=== PATIENT | male | born 1955 | race Caucasian/White ===

== ENCOUNTER 2016-11-29 20:16 | Emergency (ER) | payer BC, OTHER ==
[~2016-11-29] VITALS: Ht 182.9 cm; Wt 99.9 kg
[~2016-11-29 20:16] MED LIST: ATV/1 PO; BND25X PO; DULO1CAP39 PO; GABA1CAP4 PO; HYDROCO/APAP; LEVO150T9 PO; NRV/10 PO; OXYC7.5T65 PO; PRT40 PO; RBX750 PO
[2016-11-29 20:20] VITALS: TEMP 36.8; Ht 182.9 cm; Wt 99.9 kg
[2016-11-29] MEDS ORDERED: RIFA550T2 PO (21:40)
[2016-11-29] MEDS ORDERED: CYM/30 PO (21:40)
[2016-11-29] MEDS ORDERED: MAGN400T6 PO (21:40)
[2016-11-29] MEDS ORDERED: FERR1TAB23 PO (21:40)
[2016-11-29] MEDS ORDERED: MULT-513 PO (21:40)
[2016-11-29] MEDS ORDERED: CYCL10TA6 PO (21:40)
[2016-11-29] MEDS ORDERED: NADO20TA15 PO (21:40)
[2016-11-29] MEDS ORDERED: APR25 PO (21:40)
[2016-11-29] MEDS ORDERED: LEVO150T PO (21:40)
[2016-11-29] MEDS ORDERED: PANT40TA PO (21:40)
[2016-11-29] MEDS ORDERED: TAMS0.4C38 PO (21:40)
[2016-11-29] MEDS ORDERED: LACTULOSE PO (21:40)
[2016-11-29] MEDS ORDERED: CYAN10005 PO (21:40)
[2016-11-29] MEDS ORDERED: THIA100T11 PO (21:40)
[2016-11-29] MEDS ORDERED: GABA-113 PO (21:40)
[2016-11-29] MEDS ORDERED: ATV/1 PO (21:40)
[2016-11-29] MEDS ORDERED: FOLI1TAB7 PO (21:40)
[2016-11-29] MEDS ORDERED: MoRPHine SULFATE 4 MG/ML 1 ML CARP\\VIAL IV STA (21:49)
[2016-11-29] MEDS ORDERED: SODIUM CHLORIDE 0.9% 1000ML 1,000 ML IV STA (21:49)
[2016-11-29] MEDS ORDERED: OPTIRAY 320 IV PRN (22:00)
[2016-11-29 22:33] LABS: BASO % 0.5 %; BASO ABS # 0.03 K/uL (0-0.2); COMPLETE YES; EOS % 2.4 %; HEMATOCRIT 41.4 % (42-52); IG% 0.3 %; LYMPH % 42.6 %; LYMPH ABS # 2.71 K/uL (1.2-3.4); MEAN CORPUSCULAR HGB CONC 34.1 g/dl (32-36); MEAN PLATELET VOLUME 10.1 fL (7.4-10.4); MONO % 15.3 %; NEUT % 38.9 %; PLATELET COUNT 177 K/uL (130-400); RED BLOOD COUNT 4.27 M/uL (4.7-6.1); WHITE BLOOD COUNT 6.36 K/uL (4.8-10.8)
[2016-11-29 22:46] LABS: CREATININE 0.88 mg/dl (0.60-1.40); POTASSIUM 3.8 mmol/L (3.5-5.1)
[2016-11-29 23:17] LABS: URINE APPEARANCE CLEAR (CLEAR); URINE BILIRUBIN NEG (NEG); URINE COLOR YELLOW; URINE NITRITE NEG (NEG); URINE PH 8.5 (4.5-7.5); URINE SPECIFIC GRAVITY 1.004 (1.000-1.030); UROBILINOGEN NEG (NEG); ZZUR CULT IF INDIC CLEAN CATCH NO
[2016-11-29 23:31] LABS: MANUAL MICROSCOPIC REQUIRED? NO; REVIEW REQ? NO
[2016-11-30] MEDS ORDERED: OXYCODONE IR HOME PACK PO ONE (02:15)
[2016-11-30] MEDS ORDERED: OXYC1TAB3 PO (02:22)
--- NOTE | 2016-11-30 02:26 | EMERGENCY ROOM VISIT NOTE ---
History First contact with patient: 21:41 Chief Complaint: GROIN PAIN Stated Complaint: PAIN IN RT GROIN AREA INTO BACK History of Present Illness The patient is a 61 year old male who presents to the Emergency Room with complaints of right groin, abdominal and back pain. The patient states that he has been having pain in his right groin for the past few weeks. He states the pain radiates into his testicles and into his back. He reports dysuria but denies any other urinary symptoms. He states he has been mildly constipated. He reports some associated nausea, but no vomiting. He reports a history of a hernia repair but denies any other surgeries. The patient denies any history of similar symptoms. He states the pain seems to be worse when he is moving around, especially standing up from a lying position. Patient states the pain sometimes feels better when he props a pillow behind his back. He rates his current discomfort an 8/10. He describes the pain as dull. Review of Systems A complete 10 point review of systems was reviewed with the patient with pertinent positives and negatives as per history of present illness. All else were negative. Past Medical/Surgical History Medical Problems: (1) GERD (gastroesophageal reflux disease) (2) Hypothyroid (3) S/P herniorrhaphy Surgical Problems: (1) H/O thyroidectomy (2) Hx of cholecystectomy Social History Smoking Status: Former Smoker Marital Status: Housing Status: lives with family Current/Historical Medications Scheduled Cyanocobalamin (Vitamin B-12), 2,000 MCG PO DAILY Duloxetine HCl (Cymbalta), 1 CAP PO DAILY Ferrous Sulfate (Iron), 1 TAB PO TID Folic Acid (Folvite), 1 MG PO DAILY Gabapentin (Neurontin), 300 MG PO TID Hydralazine Hcl (Apresoline), 25 MG PO TID Levothyroxine Sodium (Synthroid), 150 MCG PO DAILY Lorazepam (Ativan), 1 MG PO BID Magnesium Oxide (Mag-Ox), 400 MG PO BID Methocarbamol (Methocarbamol), 750 MG PO TID Multivitamins/Minerals (Mvi With Minerals), 1 TAB PO DAILY Nadolol (Corgard), 20 MG PO DAILY Pantoprazole (Protonix), 40 MG PO DAILY Rifaximin (Xifaxan), 550 MG PO BID Tamsulosin Hcl (Flomax), 0.4 MG PO DAILY Thiamine Hcl (Vitamin B-1), 100 MG PO DAILY [Lactulose], 10 GM PO DAILY Scheduled PRN Cyclobenzaprine Hcl (Flexeril), 10 MG PO TID PRN for Muscle Spasms Oxycodone Ir (Roxicodone Ir), 1-2 TAB PO Q4H PRN for Pain Allergies Coded Allergies: Prednisone (Unverified Adverse Reaction, Severe, HIVES, 09/26/13) TOLD BY FAMILY MEMBER Codeine (Verified Adverse Reaction, Mild, NAUSEATED, 09/26/13) Physical Exam Vital Signs Date Time Temp Pulse Resp B/P (MAP) Pulse Ox O2 Delivery O2 Flow Rate FiO2 11/30/16 02:33 71 18 125/79 97 11/30/16 00:25 80 18 152/85 98 Room Air 11/29/16 20:20 36.8 74 18 171/90 97 Room Air Physical Exam VITALS: Vitals are noted on the nurse's note and reviewed by myself. Vital signs stable. GENERAL: This is a 61-year-old male, in no acute distress, nondiaphoretic, well- developed well-nourished. SKIN: Capillary reflex less than 2 seconds. HEENT: Normocephalic. PERRLA. Mucous membranes moist. HEART: Regular rate and rhythm without murmurs gallops or rubs. LUNGS: Clear to auscultation bilaterally without wheezes, rales or rhonchi. ABDOMEN: Positive bowel sounds x 4. Soft, mild tenderness to palpation of the right groin. No guarding or rebound tenderness. MUSCULOSKELETAL: Mild vague tenderness to palpation of the lumbar region. Negative straight leg raise test. TESTICULAR: No skin changes noted. Testicles are nontender to palpation. There are no palpable masses. NEURO: Patient was alert and oriented to person place and time. Medical Decision & Procedures ER Provider Diagnostic Interpretation: CT ABDOMEN & PELVIS: No acute abdominal or pelvic abnormalities. Additional findings: Dependent atelectasis. The gallbladder is surgically absent. Minimal pneumobilia, likely secondary to prior instrumentation. The spleen, pancreas, and adrenal glands are unremarkable. The kidneys, ureters and urinary bladder are unremarkable. The appendix is surgically absent. The stomach, small bowel, and colon are unremarkable. Tiny left fat-containing inguinal hernia. No free fluid. No free air. Postsurgical changes noted within the lumbar spine. US SCROTAL: The left testis demonstrates heterogeneous echotexture, predominately hypoechoic , with decreased vascular flow. There are 2 calcific densities seen within the testis. The largest measured 3.2 mm. Findings are concerning for chronic torsion/detorsion. Bilateral epididymal cysts. The right epididymis is hypoechoic which is nonspecific. No increased vascular flow to suggest infection. The right testis is unremarkable. No torsion, masses or sonographic results of infection. Radiologist: Vito Mathew MD Laboratory Results 11/29/16 22:00 Red Blood Count 4.27, Mean Corpuscular Volume 97.0, Mean Corpuscular Hemoglobin 33.0, Mean Corpuscular Hemoglobin Concent 34.1, Mean Platelet Volume 10.1, Neutrophils (%) (Auto) 38.9, Lymphocytes (%) (Auto) 42.6, Monocytes (%) (Auto) 15.3, Eosinophils (%) (Auto) 2.4, Basophils (%) (Auto) 0.5, Neutrophils # (Auto ) 2.48, Lymphocytes # (Auto) 2.71, Monocytes # (Auto) 0.97, Eosinophils # (Auto ) 0.15, Basophils # (Auto) 0.03 11/29/16 22:00 Test 11/29/16 22:00 11/29/16 23:00 White Blood Count 6.36 K/uL (4.8-10.8) Red Blood Count 4.27 M/uL (4.7-6.1) Hemoglobin 14.1 g/dL (14.0-18.0) Hematocrit 41.4 % (42-52) Mean Corpuscular Volume 97.0 fL (80-100) Mean Corpuscular Hemoglobin 33.0 pg (25-34) Mean Corpuscular Hemoglobin Concent 34.1 g/dl (32-36) Platelet Count 177 K/uL (130-400) Mean Platelet Volume 10.1 fL (7.4-10.4) Neutrophils (%) (Auto) 38.9 % Lymphocytes (%) (Auto) 42.6 % Monocytes (%) (Auto) 15.3 % Eosinophils (%) (Auto) 2.4 % Basophils (%) (Auto) 0.5 % Neutrophils # (Auto) 2.48 K/uL (1.4-6.5) Lymphocytes # (Auto) 2.71 K/uL (1.2-3.4) Monocytes # (Auto) 0.97 K/uL (0.11-0.59) Eosinophils # (Auto) 0.15 K/uL (0-0.5) Basophils # (Auto) 0.03 K/uL (0-0.2) RDW Standard Deviation 46.1 fL (36.4-46.3) RDW Coefficient of Variation 13.2 % (11.5-14.5) Immature Granulocyte % (Auto) 0.3 % Immature Granulocyte # (Auto) 0.02 K/uL (0.00-0.02) Anion Gap 8.0 mmol/L (3-11) Est Creatinine Clear Calc Drug Dose 107.9 ml/min Estimated GFR () 107.5 Estimated GFR (Non- 92.7 BUN/Creatinine Ratio 7.0 (10-20) Calcium Level 9.0 mg/dl (8.5-10.1) Total Bilirubin 0.7 mg/dl (0.2-1) Aspartate Amino Transf (AST/SGOT) 30 U/L (15-37) Alanine Aminotransferase (ALT/SGPT) 48 U/L (12-78) Alkaline Phosphatase 57 U/L (45-117) Total Protein 7.9 gm/dl (6.4-8.2) Albumin 3.9 gm/dl (3.4-5.0) Globulin 4.0 gm/dl (2.5-4.0) Albumin/Globulin Ratio 1.0 (0.9-2) Urine Color YELLOW Urine Appearance CLEAR (CLEAR) Urine pH 8.5 (4.5-7.5) Urine Specific [place] 1.004 (1.000-1.030) Urine Protein NEG (NEG) Urine Glucose (UA) NEG (NEG) Urine Ketones NEG (NEG) Urine Occult Blood NEG (NEG) Urine Nitrite NEG (NEG) Urine Bilirubin NEG (NEG) Urine Urobilinogen NEG (NEG) Urine Leukocyte Esterase NEG (NEG) Medications Administered Medications (Trade) Dose Ordered Sig/Michael Route Start Time Stop Time Status Last Admin Dose Admin Sodium Chloride 1,000 ml @ 999 mls/hr Q1H1M STAT IV 11/29/16 21:49 11/29/16 22:49 DC 11/29/16 22:07 999 MLS/HR Morphine Sulfate (MoRPHine SULFATE INJ) 4 mg NOW STAT IV 11/29/16 21:49 11/29/16 21:51 DC 11/29/16 22:08 4 MG ED Course The patient was evaluated as above. Labs were drawn and IV access was obtained. Patient was medicated with 1 L normal saline solution and [address] abdomen and pelvis was performed and read by radiology as above. Findings were discussed with the patient. We will proceed with testicular ultrasound. Case was discussed with Dr. Galarza of urology. We had a lengthy discussion regarding the patient's case. We ultimately decided on discharge with close follow-up. Discharge instructions were reviewed with the patient. The patient verbalized understanding of my assessment and treatment plan and was discharged home in good condition. Medical Decision Differential diagnosis includes kidney stone, urinary tract infection, incarcerated hernia diverticulitis, appendicitis, orchitis, testicular torsion, among others. The patient is a 61-year-old male who presents today complaining of right-sided groin pain. Labs revealed no leukocytosis, anemia or concerning electrolyte abnormalities. Urinalysis was not suggestive of infection. Initially, CT of the abdomen and pelvis was obtained because the patient seemed to be complaining of abdominal pain. This was unremarkable. Given the patient's continued pain and complains of pain radiating into his testicles, I did choose to order an ultrasound of the testicles. This was read by statrad and findings which were concerning for chronic torsion/detorsion. I spoke with Dr. Galarza regarding the patient. She remained on the phone while I performed a second testicular exam which did not show any physical exam findings consistent with testicular torsion. Additionally, the patient's symptoms seem to be on the right side, but ultrasound findings are all on the left side. Patient has no skin changes or significant tenderness on exam. The testicle is not high riding. The patient has a history of degenerative disc disease and the symptoms he is describing may be secondary to lumbar radiculopathy. I do think the patient seems to be discharged home. Dr. Galarza will call tomorrow regarding follow-up. The patient will be given pain medication at home and instructed to take anti-inflammatories. He was instructed to return here immediately with any worsening signs or symptoms. The patient's case was reviewed with Dr. Garcia, ED attending physician, who agreed with my assessment and treatment plan. Based on the patient's presentation and work up, I feel the patient is stable for outpatient treatment. The patient was educated to return to the emergency department for any worsening of their current condition or new/concerning symptoms. He will follow up with his PCP and Dr. Galarza. Medication reconciliation: I attest that I have personally reviewed the patient 's current medication list. Blood pressure screening: Patient was found to have an elevated blood pressure and was referred to their primary care provider for recheck and further treatment. Impression Primary Impression: Right groin pain Departure Information Dispostion Home / Self-Care Condition GOOD Prescriptions Oxycodone Ir (Roxicodone Ir) 5 Mg Tab 1-2 TAB PO Q4H Y for Pain, #12 TAB For Initial Treatment Prov: Cordelia Bull .SHANICE 11/30/16 Referrals No Doctor, Assigned (PCP) Patient Instructions My [facility] Additional Instructions For pain control, you can use the following [id number] medicines (if >12 yo): - Regular strength (200 mg/tab) Advil (ibuprofen) 3 tabs every 4-6 hours as needed. Do not exceed a dose of 3200 mg per day. Oxycodone (OxyIR) 5mg: Take 1-2 pills every 4-6 hours as needed for breakthrough pain. Avoid alcohol, operating machinery or dangerous equipment, working on ladders or roofs, DRIVING, or situations where being under the influence may be dangerous. It is recommended to use a stool softener such as Colace, 100mg twice daily while taking this medication to avoid constipation. Dr. Galarza' office will call you tomorrow regarding follow up. You should also follow up with your primary care provider. Return to the emergency department immediately if you develop thickening of the scrotal skin, worsening pain in the testicles, any skin changes, vomiting or any other new/concerning symptoms.
[2016-11-30 02:33] VITALS: BP 125/79; PULSE 71; O2SAT 97
--- NOTE | 2016-11-30 07:03 | DIAGNOSTIC IMAGING REPORT ---
ABDOMEN AND PELVIS CT WITH IV CONTRAST CT DOSE: 830.27 mGy.cm HISTORY: Flank pain RLQ, right groin pain, radiation into testicle TECHNIQUE: Multiaxial CT images of the abdomen and pelvis were performed following the use of intravenous contrast. COMPARISON STUDY: None. FINDINGS: The lung bases are clear. Prior cholecystectomy and appendectomy. Kidneys enhance uniformly. Liver spleen and kidneys are unremarkable. No evidence for hydronephrosis. No obstructive changes of the bowel pattern. Bladder is midline. Fat-containing left inguinal hernia. No evidence of bowel containment or obstruction. IMPRESSION: No acute process. Electronically signed by: Pj Alcantara M.D. 11/30/2016 7:02 AM Dictated Date/Time: 11/30/2016 7:00 AM
--- NOTE | 2016-11-30 07:25 | DIAGNOSTIC IMAGING REPORT ---
ULTRASOUND TESTES AND SCROTUM CLINICAL HISTORY: Right groin pain. COMPARISON STUDY: No priors. TECHNIQUE: Real-time, grayscale, and color Doppler sonography of the testes and scrotum is performed. Images are reviewed in the transverse and longitudinal planes. FINDINGS: The right testis is normal in size and homogeneous in echotexture. The left testis is atrophic and markedly heterogeneous in echotexture. The right testis measures 5.1 x 2.8 x 3.4 cm and the left testis measures 3.7 x 1.9 x 2.8 cm. Calcifications are noted within the left testis. No intratesticular mass is seen. Testicular blood flow is normal and symmetric. Normal Doppler waveforms are identified in both testes, but appear diminished on the left. The epididymal heads are normal in appearance. The right epididymal head measures 1.6 cm in length and the left epididymal head measures 1.2 cm in length. Bilateral epididymal head cysts measure up to 12 mm. No varicocele or hydrocele is seen. IMPRESSION: 1. Unremarkable sonographic appearance of the right testis. 2. Left testis is atrophic and markedly heterogeneous in echotexture. Flow is identified within the left testis, but appears diminished as compared to the right and the appearance suggests a remote insult such as chronic torsion/detorsion. A mass lesion is considered less likely. Follow-up with urology is recommended. 3. Bilateral epididymal head cysts. Electronically signed by: Pedrito Encinas M.D. 11/30/2016 7:24 AM Dictated Date/Time: 11/30/2016 7:20 AM
== END 2016-11-30 02:30 | disposition home or self-care (01) ==
LOC: C.EDB 20:18 → C.EDA 11-30 02:30
DX: R10.30 Lower abdominal pain, unspecified (principal); E03.9 Hypothyroidism, unspecified; K21.9 Gastro-esophageal reflux disease without esophagitis; Z87.891 Personal history of nicotine dependence; Z79.899 Other long term (current) drug therapy; Z90.49 Acquired absence of other specified parts of digestive tract; Z88.5 Allergy status to narcotic agent; Z88.8 Allergy status to other drugs, medicaments and biological substances

== ENCOUNTER 2017-09-06 11:34 | Emergency (ER) | payer OTHER ==
[~2017-09-06] VITALS: Ht 185.4 cm; Wt 100.0 kg
[~2017-09-06 11:34] MED LIST changes: +APR25 PO; -BND25X PO; +CYAN10005 PO; +CYCL10TA6 PO; +CYM/30 PO; -DULO1CAP39 PO; +FERR1TAB23 PO; +FOLI1TAB8 PO; +GABA-113 PO; -GABA1CAP4 PO; -HYDROCO/APAP; +LACTULOSE PO; +LEVO150T PO; -LEVO150T9 PO; +MAGN400T6 PO; +MULT-513 PO; +NADO20TA15 PO; -NRV/10 PO; -OXYC7.5T65 PO; +PANT40TA PO; -PRT40 PO; +RIFA550T2 PO; +TAMS0.4C38 PO; +THIA100T11 PO
[2017-09-06 11:50] VITALS: BP 146/80; PULSE 81; TEMP 36.3; O2SAT 95; Ht 185.4 cm; Wt 100.0 kg
[2017-09-06] MEDS ORDERED: GABA800T2 PO (12:11)
--- NOTE | 2017-09-06 12:34 | DIAGNOSTIC IMAGING REPORT ---
R ANKLE MIN 3 VIEWS ROUTINE CLINICAL HISTORY: 62 years-old Male presenting with R ankle pain s/p fall. TECHNIQUE: Frontal, mortise, and lateral views of the right ankle were obtained. COMPARISON: None. FINDINGS: Nondisplaced transversely oriented fracture of the distal fibula below the level of the syndesmosis. The ankle mortise remains intact. No widening of the tibiofibular articulation. No abnormality of the medial malleolus. Diffuse soft tissue swelling at the ankle noted. No advanced degenerative change. Atherosclerosis noted. IMPRESSION: Nondisplaced Austin A distal fibular fracture. Electronically signed by: Wood Morrison M.D. 09/06/2017 12:33 PM Dictated Date/Time: 09/06/2017 12:31 PM
--- NOTE | 2017-09-06 16:08 | EMERGENCY ROOM VISIT NOTE ---
History First contact with patient: 11:54 Chief Complaint: ANKLE PAIN Stated Complaint: ANKLE SWOLLEN - CAN'T PUT WEIGHT ON IT History of Present Illness The patient is a 62 year old male who presents to the Emergency Room with complaints of persistent right ankle pain after twisting his ankle yesterday. The patient denies any pain radiating into the foot or the leg. The patient reports that he has chronic right lower extremity pain secondary to back surgery 4 years ago. He denies any other injuries from his fall, including worsening back pain, neck pain or head injury. He rates his discomfort a 9 out of 10. When asked what he is currently taking for pain, he reports gabapentin. Review of Systems 10 system review was performed and was negative except for pertinent positives and negatives as indicated in history of present illness Past Medical/Surgical History Medical Problems: (1) GERD (gastroesophageal reflux disease) (2) Hypothyroid (3) S/P herniorrhaphy Surgical Problems: (1) H/O thyroidectomy (2) Hx of cholecystectomy Family History FH: diabetes mellitus FH: hypertension FH: lung disease Social History Smoking Status: Never Smoker Alcohol Use: occasionally Marital Status: in relationship Housing Status: lives with significant other Occupation Status: unemployed Current/Historical Medications Scheduled Cyanocobalamin (Vitamin B-12), 2,000 MCG PO DAILY Duloxetine HCl (Cymbalta), 30 MG PO DAILY Folic Acid (Folvite), 1 MG PO DAILY Gabapentin (Neurontin), 800 MG PO TID Hydralazine Hcl (Apresoline), 25 MG PO TID Levothyroxine Sodium (Synthroid), 150 MCG PO DAILY Multivitamins/Minerals (Mvi With Minerals), 1 TAB PO DAILY Nadolol (Corgard), 20 MG PO DAILY Pantoprazole (Protonix), 40 MG PO DAILY Rifaximin (Xifaxan), 550 MG PO BID Tamsulosin Hcl (Flomax), 0.4 MG PO DAILY Thiamine Hcl (Vitamin B-1), 100 MG PO DAILY Physical Exam Vital Signs Date Time Temp Pulse Resp B/P (MAP) Pulse Ox O2 Delivery O2 Flow Rate FiO2 09/06/17 11:50 36.3 81 20 146/80 95 Room Air Physical Exam Examination shows diffuse edema about the right ankle. No ecchymosis, open skin wounds, abrasions or lacerations noted. The patient has generalized tenderness to palpation about the entire ankle. No tenderness to the Achilles tendon, calcaneus or phalanges. Most of his tenderness is along the lateral ligament. Negative anterior drawer test. Pedal pulses are intact. Medical Decision & Procedures ER Provider Diagnostic Interpretation: My interpretation of right ankle x-rays showed a distal fibula fracture without any syndesmotic or mortise widening. Radiologist report is as follows: R ANKLE MIN 3 VIEWS ROUTINE CLINICAL HISTORY: 62 years-old Male presenting with R ankle pain s/p fall. TECHNIQUE: Frontal, mortise, and lateral views of the right ankle were obtained. COMPARISON: None. FINDINGS: Nondisplaced transversely oriented fracture of the distal fibula below the level of the syndesmosis. The ankle mortise remains intact. No widening of the tibiofibular articulation. No abnormality of the medial malleolus. Diffuse soft tissue swelling at the ankle noted. No advanced degenerative change. Atherosclerosis noted. IMPRESSION: Nondisplaced Austin A distal fibular fracture. ED Course Patient history and physical exam were performed. Nurse's notes were reviewed. Vital signs were reviewed and were normal. The patient initially deferred analgesics. X-rays of the right ankle confirms a distal fibular fracture. X- rays were reviewed with the patient. A posterior Ortho-Glass splint was applied. Neurovascular check after splint placement was normal. The patient reports that he has crutches at home. The patient was instructed to follow-up with orthopedics for further reevaluation and management. He was encouraged to take his home pain medications as needed for additional pain relief. Review of the [place] Prescription Drug Monitoring Program shows that the patient is currently in pain management. The patient was happy with plan of care, voiced understanding of all discharge instructions, and rated his discomfort a 4 out of 10 at the conclusion of my exam. Medical Decision [place] Drug Monitoring Program Search Results: patient reviewed within database, see additional documentation Medication Reconcilliation Current Medication List: was personally reviewed by me Blood Pressure Screening Patient's blood pressure: Normal blood pressure Impression Primary Impression: Fracture of distal end of right fibula Departure Information Referrals Mary Cheatham PA-C (PCP) Patient Instructions My [facility] Problem Qualifiers Primary Impression: Fracture of distal end of right fibula Encounter type: initial encounter Fracture type: closed Fracture morphology : other fracture Qualified Codes: S82.831A - Other fracture of upper and lower end of right fibula, initial encounter for closed fracture
== END 2017-09-06 13:32 | disposition home or self-care (01) ==
LOC: C.EDB 11:36 → C.EDD 13:32
DX: S82.831A Other fracture of upper and lower end of right fibula, initial encounter for closed fracture (principal); X50.1XXA Overexertion from prolonged static or awkward postures, initial encounter; Y92.9 Unspecified place or not applicable; K21.9 Gastro-esophageal reflux disease without esophagitis; E03.9 Hypothyroidism, unspecified; Z83.3 Family history of diabetes mellitus; Z82.49 Family history of ischemic heart disease and other diseases of the circulatory system; Z83.6 Family history of other diseases of the respiratory system; Z79.899 Other long term (current) drug therapy

== ENCOUNTER → 2017-09-07 | Outpatient (CLI) | payer OTHER ==
[~2017-09-07] MED LIST changes: -ATV/1 PO; -CYCL10TA6 PO; -FERR1TAB23 PO; -GABA-113 PO; +GABA800T2 PO; -LACTULOSE PO; -MAGN400T6 PO; -RBX750 PO
== END | disposition home or self-care (01) ==
LOC: C.RDSM 15:25
PROVIDERS: ATTEND Orthopaedic Surgery Sports Medicine
DX: S82.839A Other fracture of upper and lower end of unspecified fibula, initial encounter for closed fracture (principal); X58.XXXA Exposure to other specified factors, initial encounter

== ENCOUNTER → 2017-09-26 | Outpatient (CLI) | payer OTHER | END | disposition home or self-care (01) | LOC: C.RDSM 11:49 | PROVIDERS: ATTEND Orthopaedic Surgery Sports Medicine | DX: S82.839A Other fracture of upper and lower end of unspecified fibula, initial encounter for closed fracture (principal); X58.XXXA Exposure to other specified factors, initial encounter ==